=== PATIENT | male | born 1990 | race African-American/Black ===

== ENCOUNTER 2025-02-22 22:36 | Emergency (ER) | payer MEDICAID ==
[~2025-02-22] VITALS: Ht 172.7 cm; Wt 68.0 kg
[2025-02-22 22:48] VITALS: O2SAT 95
[2025-02-23 00:11] LABS: BASOPHILS % 1.3 % (0.0-2.0); DIFFERENTIAL COMMENT 0; EOSINOPHILS % 2.8 % (0.0-5.0); HEMATOCRIT. 39.6 % (42.0-52.0); LYMPHOCYTES % 58.1 % (20.0-50.0); MEAN CORPUSCULAR HEMOGLOBIN 26.2 pg (28.0-32.0); MEAN CORPUSCULAR HGB CONC 32.9 g/dL (31.0-37.0); MEAN CORPUSCULAR VOLUME 79.7 fL (80.0-94.0); MEAN PLATELET VOLUME 8.4 fl (7.4-10.4); MONOCYTES % 9.2 % (2.0-8.0); NEUTROPHILS % 28.6 % (40.0-76.0); PLATELET 241 x1000/uL (130-400); RED BLOOD CELL COUNT 4.97 mill/uL (4.7-6.1); RED CELL DISTRIBUTION WIDTH 14.8 % (11.6-14.6); WHITE BLOOD COUNT 6.3 x1000/uL (4.5-11.0)
[2025-02-23 00:21] LABS: CHLORIDE 108 mEq/L (98-107); POTASSIUM 4.1 mEq/L (3.5-5.1); SODIUM 144 mEq/L (136-145)
[2025-02-23 00:22] LABS: CALCIUM 9.4 mg/dL (8.7-10.4); CARBON DIOXIDE 28 mEq/L (21-32)
[2025-02-23 00:27] LABS: GLUCOSE 75 mg/dL (70-105); UREA NITROGEN BLOOD 10 mg/dL (9-23)
[2025-02-23 00:28] LABS: ETHANOL BLOOD < 10 mg/dL (<10)
[2025-02-23 00:29] LABS: ACETAMINOPHEN < 2 ug/mL (10-30)
[2025-02-23 00:38] LABS: CLARITY URINE CLEAR (CLEAR); COLOR URINE DARK YELLOW (YELLOW); GLUCOSE URINE NEGATIVE (NEGATIVE); KETONES URINE TRACE (NEGATIVE); LEUKOCYTE ESTERASE URINE NEGATIVE (NEGATIVE); NITRITE URINE NEGATIVE (NEGATIVE); OCCULT BLOOD URINE NEGATIVE (NEGATIVE); PROTEIN URINE 2+ (NEGATIVE); SPECIFIC GRAVITY URINE 1.041 (1.005-1.030)
[2025-02-23 01:08] LABS: *AMPHETAMINES SCREEN URINE NEGATIVE (NEGATIVE); *BARBITURATES SCREEN URINE NEGATIVE (NEGATIVE); *BENZODIAZEPINES SCREEN URINE NEGATIVE (NEGATIVE); *COCAINE SCREEN URINE NEGATIVE (NEGATIVE); CANNABINOID URINE SCREEN PRESUMPTIVE POSITIVE (NEGATIVE); ECSTASY MDMA SCREEN URINE NEGATIVE (NEGATIVE); METHADONE URINE SCREEN NEGATIVE (NEGATIVE); OPIATES URINE SCREEN NEGATIVE (NEGATIVE); PHENCYCLIDINE URINE SCREEN NEGATIVE (NEGATIVE)
[2025-02-23 04:53] LABS: SQUAMOUS EPITHELIAL CELL URINE FEW /lpf (RARE/1+)
[2025-02-23 04:57] LABS: BACTERIA URINE NONE SEEN; RBC URINE 0-2 /hpf (0-2); WBC URINE 0-2 /hpf (0-2)
[2025-02-23 11:00] VITALS: BP 119/57; PULSE 79; RESP 16; TEMP 37; O2SAT 99
== END 2025-02-23 12:52 | disposition home or self-care (01) ==
LOC: ER 22:36
DX: R45.851 Suicidal ideations (principal); F25.9 Schizoaffective disorder, unspecified; F10.90 Alcohol use, unspecified, uncomplicated; F12.90 Cannabis use, unspecified, uncomplicated; Z59.00 Homelessness unspecified; Z79.899 Other long term (current) drug therapy; Z20.822 Contact with and (suspected) exposure to COVID-19
CPT/HCPCS: 36415; 80048; 80305; 80307; 80320; 80329; 81003; 85025; 87426; 99285; G0480

== ENCOUNTER 2025-04-27 23:25 | Emergency (ER) | payer MEDICAID ==
[~2025-04-27] VITALS: Ht 180.3 cm; Wt 82.0 kg
[2025-04-27 23:35] VITALS: O2SAT 98
[2025-04-27] MEDS ORDERED: IBUP-2029 MT (23:48)
[2025-04-27] MEDS: IBUPROFEN 600MG TABLET PO ONE (23:52)
[2025-04-27 23:53] VITALS: BP 110/66; PULSE 66; RESP 16; TEMP 36.9; O2SAT 98
== END 2025-04-28 00:31 | disposition home or self-care (01) ==
LOC: ER 23:25
DX: M79.671 Pain in right foot (principal); M79.672 Pain in left foot; F15.90 Other stimulant use, unspecified, uncomplicated
CPT/HCPCS: 99283